=== PATIENT | female | born 1995 | race Caucasian/White ===

== ENCOUNTER 2017-02-03 20:43 | Emergency (ER) | payer OTHER ==
[2017-02-03 21:27] VITALS: BP 151/90
[2017-02-03] MEDS ORDERED: HYDROCODONE/ACETAMINOPHEN 5-325 MG 6 TAB/DSPK PO PRN (22:42)
--- NOTE | 2017-02-03 22:47 | ER Document Report ---
ED General - General Chief Complaint: Mouth Problem Stated Complaint: MOUTH PAIN Time Seen by Provider: 02/03/17 22:29 Notes: Patient is a 21-year-old female presents with complaint of pain in her right upper molar. She went to [facility] this morning and was placed on amoxicillin. She called her dentist but they were closed and she left a message. She hopes to get into her dentist tomorrow. She request something for pain because her tooth hurts. No difficulty swallowing. No difficulty breathing. No facial swelling. She says her pain is been there for 2 days and she has been unable to sleep. No other complaints at this time. TRAVEL OUTSIDE OF THE [place] IN LAST 30 DAYS: No Past Medical History - Social History Smoking Status: Unknown if Ever Smoked Frequency of alcohol use: None Drug Abuse: None Family History: Reviewed & Not Pertinent Renal/ Medical History: Denies: Hx Peritoneal Dialysis Review of Systems - Review of Systems Notes: My Normal Review Basic REVIEW OF SYSTEMS: CONSTITUTIONAL : Denies fever, chills, or sweats. Denies recent illness. EENT: Dental pain CARDIOVASCULAR: Denies chest pain. RESPIRATORY: Denies cough, cold, or chest congestion. Denies shortness of breath, difficulty breathing, or wheezing. GASTROINTESTINAL: Denies abdominal pain. Denies nausea, vomiting, or diarrhea. Denies constipation. Last BM: MUSCULOSKELETAL: Denies neck or back pain or joint pain or swelling. SKIN: Denies rash or skin lesions. NEUROLOGICAL: Denies altered mental status or loss of consciousness. Denies headache. Denies weakness or paralysis or loss of use of either side. Denies problems with gait or speech. Denies sensory or motor loss. ALL OTHER SYSTEMS REVIEWED AND NEGATIVE. Physical Exam - Vital signs Vitals: Temp Pulse Resp BP Pulse Ox 97.7 F 79 16 151/90 H 99 02/03/17 21:23 02/03/17 21:23 02/03/17 21:23 02/03/17 21:23 02/03/17 21:23 - Notes Notes: General Appearance: Well nourished, alert, cooperative, no acute distress, mild obvious discomfort. Vitals: reviewed, See vital signs table. Head: no swelling or tenderness to the head Eyes: PERRL, EOMI, Conjuctiva clear Mouth: No decreasd moisture. Normal appearing dentition Throat: No tonsillar inflammation, No airway obstruction, No lymphadenopathy Neck: Supple, no neck tenderness Skin: warm, dry, appropriate color, no rash Neuro: speech clear, oriented x 3, normal affect, responds appropriately to questions. Course - Vital Signs Vital signs: Temp Pulse Resp BP Pulse Ox 97.7 F 79 16 151/90 H 99 02/03/17 21:23 02/03/17 21:23 02/03/17 21:23 02/03/17 21:23 02/03/17 21:23 - Transfer of Care Notes: 02/03/17 22:46 Patient will be given a few Victor to go home with. She is informed to follow up immediately with her dentist and to continue to take the Amoxicillin as prescribed earlier to her today. She is encouraged to return to the ER if she has difficulty breathing, fevers, facial or neck swelling, or feels she is getting worse. Dictation of this chart was performed using voice recognition software; therefore, there may be some unintended grammatical errors. Discharge - Discharge Clinical Impression: Pain, dental Condition: Good Disposition: HOME, SELF-CARE Instructions: Oral Narcotic Medication ([facility]) Additional Instructions: Toothache Your pain is due to dental decay. The tooth must be repaired in order for you to feel better. You will, therefore, be referred to a dentist. Severe swelling or drainage around a tooth usually means a deep dental abscess. This also requires evaluation and treatment by the dentist, but antibiotics may be prescribed while awaiting dental treatment. You should be rechecked immediately if you develop major swelling of the face, increasing pain, a lump in the jaw or gums, headache, or fever. Please return to the ER immediately if you have neck swelling, difficulty breathing, difficulty swallowing, fevers, or feel unwell. Please follow up with a dentist as soon as possible. Forms: Return to Work
== END 2017-02-03 23:00 | disposition home or self-care (01) ==
LOC: ER 20:43
DX: K08.89 Other specified disorders of teeth and supporting structures (principal)
CPT/HCPCS: 99282